=== PATIENT | female | born 1990 | race Caucasian/White ===

== ENCOUNTER 2017-12-27 11:37 | Emergency (ER) | payer BC ==
[~2017-12-27] VITALS: Ht 154.9 cm; Wt 69.0 kg
[~2017-12-27 11:37] MED LIST: DEXA0.5T PO; ESCI10TA17 PO; FLUD0.1T10 PO; LBT200 PO; MTR600X PO; PREN1TAB29 PO
[2017-12-27 11:47] VITALS: TEMP 36.4; Ht 154.9 cm; Wt 69.0 kg
--- NOTE | 2017-12-27 12:11 | EMERGENCY ROOM VISIT NOTE ---
History Report prepared by Michael: Alfred Hilton Under the Supervision of: Dr. Barrington Fox D.O. First contact with patient: 11:51 Chief Complaint: MENTAL HEALTH EVALUATION Stated Complaint: PSYCHIATRIC PROBLEMS, EXTEME MOOD SWINGS History of Present Illness The patient is a 27 year old female who presents to the Emergency Room with complaints of intermittent depression and anxiety that began a couple of months ago. The patient has a history of depression in the past. She recently had a child approximately 4 months ago. She states that since that time she has had intermittent episodes of depression as well as anxiety. She started to have thoughts of "not wanting to be here" but no suicidal ideation or homicidal ideation against the child. The patient has a history of depression. Her medications have been changed recently because of her status. She used to take Lexapro and BuSpar but recently was switched to Zoloft. She denies having any other medical issues such as chest pain shortness of breath or fevers. She has noticed that her period has been irregular at this time but she is breast-feeding with this child wears with her previous she did not breast-feed. She was seen by her primary care physician and sent to the emergency department for further evaluation. Source of History: patient Onset: a couple of months ago Position: other (global) Quality: other (global) Timing: intermittent Associated Symptoms: No fevers, No chest pain, No SOB Review of Systems See HPI for pertinent positives & negatives. A total of 10 systems reviewed and were otherwise negative. Past Medical & Surgical Medical Problems: (1) Anxiety (2) Congenital adrenal hyperplasia (3) Depression Family History Patient reports no known family medical history. Social History Smoking Status: Never Smoker Smokeless Tobacco Use: No Alcohol Use: none Drug Use: none Marital Status: Housing Status: lives with family Current/Historical Medications Scheduled Control Pills ( Control Pills), 1 TAB PO DAILY Dexamethasone (Dexamethasone), Unknown Dose PO DAILY Fludrocortisone Acetate (Florinef), 0.1 MG PO DAILY Vit W/ Ferrous Fumara (), 1 TAB PO DAILY Sertraline (Zoloft), 25 MG PO DAILY Allergies Coded Allergies: Clindamycin (Verified Allergy, Severe, Tongue Swelling, 04/02/15) [place] (Unverified Adverse Reaction, Mild, tongue chester, 04/02/15) Physical Exam Vital Signs Date Time Temp Pulse Resp B/P (MAP) Pulse Ox O2 Delivery O2 Flow Rate FiO2 12/27/17 15:50 95 20 108/71 97 12/27/17 11:47 36.4 82 20 122/86 97 Room Air Physical Exam GENERAL: Patient is awake and alert. She is anxious appearing and tearful. EYES: The conjunctivae are clear. The pupils are round and reactive. EARS, NOSE, MOUTH AND THROAT: The nose is without any evidence of any deformity. Mucous membranes are moist tongue is midline NECK: The neck is nontender and supple. RESPIRATORY: Normal respiratory effort is noted there is no evidence of wheezing rhonchi or rales CARDIOVASCULAR: Regular rate and rhythm noted there no murmurs rubs or gallops normal S1 normal S2 GASTROINTESTINAL: The abdomen is soft. Bowel sounds are present in all quadrants. Abdomen is nontender MUSCULOSKELETAL/EXTREMITIES: There is no evidence of gross deformity full range of motion is noted in the hips and shoulders SKIN: There is no obvious evidence of any rash. There are no petechiae, pallor or cyanosis noted. NEUROLOGIC: Patient is awake alert and oriented x3. Patellar tendon reflexes are 2+ bilaterally. PSYCH: Patient is anxious and tearful appearing. Her affect is flat. At this time she is denying any homicidal ideation. She does have vague suicidal ideation but no specific plan. Medical Decision & Procedures Laboratory Results 12/27/17 12:24 Red Blood Count 5.07, Mean Corpuscular Volume 87.6, Mean Corpuscular Hemoglobin 31.4, Mean Corpuscular Hemoglobin Concent 35.8, Mean Platelet Volume 11.0, Neutrophils (%) (Auto) 69.3, Lymphocytes (%) (Auto) 20.2, Monocytes (%) (Auto) 8.4, Eosinophils (%) (Auto) 1.8, Basophils (%) (Auto) 0.2, Neutrophils # (Auto) 5.81, Lymphocytes # (Auto) 1.69, Monocytes # (Auto) 0.70, Eosinophils # (Auto) 0.15, Basophils # (Auto) 0.02 12/27/17 12:24 Test 12/27/17 12:15 12/27/17 12:24 Urine Color YELLOW Urine Appearance CLEAR (CLEAR) Urine pH 5.5 (4.5-7.5) Urine Specific [place] 1.015 (1.000-1.030) Urine Protein NEG (NEG) Urine Glucose (UA) NEG (NEG) Urine Ketones NEG (NEG) Urine Occult Blood NEG (NEG) Urine Nitrite NEG (NEG) Urine Bilirubin NEG (NEG) Urine Urobilinogen NEG (NEG) Urine Leukocyte Esterase NEG (NEG) Urine Test NEG (NEG) Urine Opiates Screen NEG (NEG) Urine Methadone, Qualitative NEG (NEG) Urine Barbiturates NEG (NEG) Urine Phencyclidine (PCP) Level NEG (NEG) Ur Amphetamine/Methamphetamine NEG (NEG) MDMA (Ecstasy) Screen NEG (NEG) Urine Benzodiazepines Screen NEG (NEG) Urine Cocaine Metabolite NEG (NEG) Urine Marijuana (THC) NEG (NEG) White Blood Count 8.38 K/uL (4.8-10.8) Red Blood Count 5.07 M/uL (4.2-5.4) Hemoglobin 15.9 g/dL (12.0-16.0) Hematocrit 44.4 % (37-47) Mean Corpuscular Volume 87.6 fL (80-100) Mean Corpuscular Hemoglobin 31.4 pg (25-34) Mean Corpuscular Hemoglobin Concent 35.8 g/dl (32-36) Platelet Count 225 K/uL (130-400) Mean Platelet Volume 11.0 fL (7.4-10.4) Neutrophils (%) (Auto) 69.3 % Lymphocytes (%) (Auto) 20.2 % Monocytes (%) (Auto) 8.4 % Eosinophils (%) (Auto) 1.8 % Basophils (%) (Auto) 0.2 % Neutrophils # (Auto) 5.81 K/uL (1.4-6.5) Lymphocytes # (Auto) 1.69 K/uL (1.2-3.4) Monocytes # (Auto) 0.70 K/uL (0.11-0.59) Eosinophils # (Auto) 0.15 K/uL (0-0.5) Basophils # (Auto) 0.02 K/uL (0-0.2) RDW Standard Deviation 39.2 fL (36.4-46.3) RDW Coefficient of Variation 12.3 % (11.5-14.5) Immature Granulocyte % (Auto) 0.1 % Immature Granulocyte # (Auto) 0.01 K/uL (0.00-0.02) Anion Gap 8.0 mmol/L (3-11) Est Creatinine Clear Calc Drug Dose 117.3 ml/min Estimated GFR () 141.7 Estimated GFR (Non- 122.3 BUN/Creatinine Ratio 21.1 (10-20) Calcium Level 8.8 mg/dl (8.5-10.1) Total Bilirubin 0.5 mg/dl (0.2-1) Direct Bilirubin 0.1 mg/dl (0-0.2) Aspartate Amino Transf (AST/SGOT) 12 U/L (15-37) Alanine Aminotransferase (ALT/SGPT) 22 U/L (12-78) Alkaline Phosphatase 78 U/L (45-117) Total Protein 7.5 gm/dl (6.4-8.2) Albumin 3.8 gm/dl (3.4-5.0) Thyroid Stimulating Hormone (TSH) 1.530 uIu/ml (0.300-4.500) Free Thyroxine 1.06 ng/dl (0.80-1.60) Random Cortisol 3.48 mcg/dl Ethyl Alcohol mg/dL < 3.0 mg/dl (0-3) Laboratory results per my review. Medications Administered Medications (Trade) Dose Ordered Sig/Pippa Route Start Time Stop Time Status Last Admin Dose Admin Lorazepam (Ativan Tab) 0.5 mg STK-MED ONCE .ROUTE 12/27/17 13:47 12/27/17 13:48 DC 12/27/17 13:47 0.5 MG ED Course 1154: The patient was evaluated in room A07. A complete history and physical examination were performed. 1347: Ordered Ativan Tab 0.5 mg IV. 1541: Upon reevaluation, the patient is resting comfortably. I discussed the results and treatment plan with the patient. She verbalized agreement of the treatment plan. The patient was discharged home. Medical Decision Prior records/ancillary studies reviewed. Triage Nursing notes reviewed. Additional history obtained from the patient's significant other. The patient's history was concerning for possible psychiatric disturbance. Differential diagnosis: Etiologies such as mood disorder, infection, hypoglycemia, electrolyte abnormalities, cardiac sources, intracerebral event, toxicologic, neurologic, as well as others were entertained. The patient is a 27-year-old female who presented to the emergency department for an evaluation of depression. The patient is a history of underlying depression however she recently gave and has had some changes in her medications for depression. The patient's had significant depression symptoms as well as anxiety. She also has an underlying adrenal condition as well. The patient was medically cleared in the emergency department. She was evaluated by the mental health block and case maker. We were able to contract for safety and the patient was able to be discharged home but she was encouraged to follow-up with her market development manager as well as her primary care physician and her therapist. She was also encouraged to continue all medications as prescribed. She was also encouraged to call crisis or return to the emergency department immediately if symptoms change worsen or the need arises. Medication Reconcilliation Current Medication List: was personally reviewed by me Blood Pressure Screening Patient's blood pressure: Normal blood pressure Impression Primary Impression: depression Additional Impression: Anxiety Scribe Attestation The scribe's documentation has been prepared under my direction and personally reviewed by me in its entirety. I confirm that the note above accurately reflects all work, treatment, procedures, and medical decision making performed by me. Departure Information Dispostion Home / Self-Care Referrals No Doctor, Assigned (PCP) Forms HOME CARE DOCUMENTATION FORM, IMPORTANT VISIT INFORMATION Patient Instructions Anxiety Disorder, Depression , My [facility] Additional Instructions Rest and avoid any strenuous activity. Continue all medications as prescribed. Follow-up with your therapist as well as her primary care physician as soon as possible. Follow-up with your market development manager as scheduled. Call crisis or return to the emergency department immediately symptoms change worsening the need arises. Problem Qualifiers
[2017-12-27 12:36] LABS: BASO % 0.2 %; BASO ABS # 0.02 K/uL (0-0.2); EOS % 1.8 %; EOS ABS # 0.15 K/uL (0-0.5); HEMATOCRIT 44.4 % (37-47); HEMOGLOBIN 15.9 g/dL (12.0-16.0); IG# 0.01 K/uL (0.00-0.02); LYMPH % 20.2 %; LYMPH ABS # 1.69 K/uL (1.2-3.4); MEAN CELL VOLUME 87.6 fL (80-100); MEAN CORPUSCULAR HEMOGLOBIN 31.4 pg (25-34); MEAN CORPUSCULAR HGB CONC 35.8 g/dl (32-36); MONO % 8.4 %; NEUT % 69.3 %; NEUT ABS # 5.81 K/uL (1.4-6.5); PLATELET COUNT 225 K/uL (130-400); RED CELL DISTRIBUTION WIDTH CV 12.3 % (11.5-14.5); RED CELL DISTRIBUTION WIDTH SD 39.2 fL (36.4-46.3); WHITE BLOOD COUNT 8.38 K/uL (4.8-10.8)
[2017-12-27 12:54] LABS: ALBUMIN 3.8 gm/dl (3.4-5.0); CALCIUM 8.8 mg/dl (8.5-10.1); CREATININE 0.64 mg/dl (0.60-1.20); POTASSIUM 3.6 mmol/L (3.5-5.1)
[2017-12-27 13:05] LABS: TOTAL PROTEIN 7.5 gm/dl (6.4-8.2)
[2017-12-27] MEDS ORDERED: LORAZEPAM 0.5 MG TAB ONE (13:47)
[2017-12-27] MEDS ORDERED: SERT25TA PO (14:04)
[2017-12-27] MEDS ORDERED: BCPILLS PO (14:04)
[2017-12-27 15:50] VITALS: BP 108/71; PULSE 95; O2SAT 97
== END 2017-12-27 15:50 | disposition home or self-care (01) ==
LOC: C.EDB 11:42 → C.EDA 15:50
DX: F53 Mental and behavioral disorders associated with the puerperium, not elsewhere classified (principal); F41.9 Anxiety disorder, unspecified; Z79.899 Other long term (current) drug therapy; Z79.3 Long term (current) use of hormonal contraceptives

== ENCOUNTER → 2018-01-11 | Outpatient (CLI) | payer BC ==
[~2018-01-11] MED LIST changes: +BCPILLS PO; -ESCI10TA17 PO; -LBT200 PO; -MTR600X PO; +SERT25TA PO
== END | disposition home or self-care (01) ==
LOC: C.LABPBG 12:09
PROVIDERS: ATTEND Internal Medicine Endocrinology, Diabetes & Metabolism
DX: E25.0 Congenital adrenogenital disorders associated with enzyme deficiency (principal)